=== PATIENT | male | born 1990 | race Hispanic/Latino ===

== ENCOUNTER 2019-07-24 21:15 | Emergency (ER) | payer OTHER ==
[~2019-07-24] VITALS: Ht 180.3 cm; Wt 104.3 kg
--- NOTE | 2019-07-24 23:03 | Diagnostic Imaging Report ---
X-ray right foot 3 views HISTORY: Pain. COMPARISON: None available. FINDINGS: Bones: No acute displaced fracture. Osseous alignment is within normal limits. Joints: The joint spaces are well-maintained. Soft tissues: Edema throughout the foot. IMPRESSION: No acute radiographic osseous abnormality. Soft tissue edema throughout the foot. Signed by: Germán Guaman DO on 07/24/2019 11:01 PM
--- NOTE | 2019-07-24 23:28 | NUR ---
xl ortho shoe applied as well as a dewayne wrap, pt stated he had crutches in his truack and no need for another pair.
== END 2019-07-24 23:28 | disposition home or self-care (01) ==
LOC: FSED 21:15
DX: S90.31XA Contusion of right foot, initial encounter (principal); R26.81 Unsteadiness on feet; V03.90XA Pedestrian on foot injured in collision with car, pick-up truck or van, unspecified whether traffic or nontraffic accident, initial encounter; Y92.008 Other place in unspecified non-institutional (private) residence as the place of occurrence of the external cause
CPT/HCPCS: 99283

== ENCOUNTER 2020-09-19 12:03 | Emergency (ER) | payer OTHER ==
[~2020-09-19] VITALS: Ht 180.3 cm; Wt 95.3 kg
[2020-09-19] MEDS ORDERED: NAPROSYN500 MG PO (13:15)
[2020-09-19] MEDS ORDERED: CYCLOBENZAPRINE5 MG PO (13:15)
== END 2020-09-19 13:45 | disposition home or self-care (01) ==
LOC: FSED 12:33
DX: R07.89 Other chest pain (principal); M25.511 Pain in right shoulder; R94.31 Abnormal electrocardiogram [ECG] [EKG]; F17.210 Nicotine dependence, cigarettes, uncomplicated
CPT/HCPCS: 71045; 93005; 99283

== ENCOUNTER 2020-10-07 15:46 | Emergency (ER) | payer OTHER ==
[~2020-10-07] VITALS: Ht 180.3 cm; Wt 109.4 kg
[~2020-10-07 15:46] MED LIST: CYCLOBENZAPRINE5 MG PO; NAPROSYN500 MG PO
[2020-10-07] MEDS ORDERED: PENICILLIN G BENZATHINE LA 1.2 MU TBX IM STA (16:27)
[2020-10-07] MEDS ORDERED: PENICILLIN G BENZATHINE LA 1.2 MU TBX ONE (16:44)
[2020-10-07] MEDS ORDERED: CEFDINIR300 MG PO (16:46)
== END 2020-10-07 17:29 | disposition home or self-care (01) ==
LOC: FSED 16:34
DX: J02.0 Streptococcal pharyngitis (principal); F41.9 Anxiety disorder, unspecified; F17.210 Nicotine dependence, cigarettes, uncomplicated
CPT/HCPCS: 83518; 99283; J0561

== ENCOUNTER 2022-09-07 19:52 | Emergency (ER) | payer OTHER ==
[~2022-09-07] VITALS: Ht 180.3 cm; Wt 124.7 kg
[~2022-09-07 19:52] MED LIST changes: +CEFDINIR300 MG PO
[2022-09-07] MEDS ORDERED: DEXAMETHASONE SOD PHOS INJ 4 MG/ML SDV IM ONE (22:15)
[2022-09-07 22:32] VITALS: BP 123/70
[2022-09-07] MEDS ORDERED: DEXAMETHASONE SOD PHOS INJ 4 MG/ML SDV ONE (22:32)
== END 2022-09-07 22:32 | disposition home or self-care (01) ==
LOC: FSED 20:14
DX: J06.9 Acute upper respiratory infection, unspecified (principal); J30.9 Allergic rhinitis, unspecified
CPT/HCPCS: 83518; 87400; 96372; 99282; J1100

== ENCOUNTER 2024-02-19 10:54 | Emergency (ER) | payer OTHER ==
[~2024-02-19] VITALS: Ht 180.3 cm; Wt 121.6 kg
[~2024-02-19 10:54] MED LIST changes: +METHOCARBAMOL500 MG PO
[2024-02-19 11:14] VITALS: PULSE 102; RESP 20; TEMP 97.8
[2024-02-19] MEDS ORDERED: ZITHROMAX250 MG PO (12:04)
[2024-02-19] MEDS ORDERED: CLARITIN-D 121 EACH PO (12:06)
[2024-02-19] MEDS ORDERED: MUCINEX DM ER1 EACH PO (12:07)
[2024-02-19] MEDS ORDERED: VENTOLIN HFA18 GM INH (12:08)
[2024-02-19 12:13] VITALS: BP 107/74; PULSE 85; RESP 17; TEMP 98.7; O2SAT 98
== END 2024-02-19 12:15 | disposition home or self-care (01) ==
LOC: FSED 11:01
DX: R05.9 Cough, unspecified (principal); J40 Bronchitis, not specified as acute or chronic; Z11.52 Encounter for screening for COVID-19
CPT/HCPCS: 0223U; 87400; 99283